=== PATIENT | male | born 1960 | race Caucasian/White ===

== ENCOUNTER 2017-07-23 23:01 | Emergency (ER) | payer MEDICARE, OTHER ==
[2017-07-23] MEDS ORDERED: Sodium Chloride 0.9% 1,000 ML IV ONE (23:46)
[2017-07-23] MEDS ORDERED: Phenytoin 250 mg/5 ml Inj IVP ONE (23:48)
[2017-07-23] MEDS ORDERED: Sodium Chloride 0.9% 1,000 ML ONE (23:59)
--- NOTE | 2017-07-24 00:11 | C.PDOC ---
History Of Present Illness 57 year old male with known history of seizure disorder and alcohol dependency presents to the ED for evaluation of witnessed seizure earlier tonight. Patient is at a rehab facility where he has been taking his Dilantin for seizure disorder, but has had unknown noncompliance. While eating dinner patient was noted to have a seizure with tonic clonic movements and associated loss of consciousness. According to staff this is first seizure in a long time. Prior to arrival to ED patient had another seizure. Patient is somnolent but responsive to questions. He has no acute complaints at this time. Chief Complaint (Nursing): Seizure History Per: Patient, Other (Facility staff ) History/Exam Limitations: no limitations Recent Seizure Activity Began: Just Before Arrival (and earlier tonight ) Number Of Seizures: Multiple Quality Of Seizure: Generalized (involving tonic-clonic movement) Precipitating Factor(s): Missed Dose Of Anti-seizure Medication (noncompliant) Past Medical History Reviewed: Historical Data, Nursing Documentation, Vital Signs Vital Signs: Last Vital Signs Temp 99.0 F 07/24/17 03:05 Pulse 92 H 07/24/17 03:05 Resp 16 07/24/17 03:05 BP 109/77 07/24/17 03:05 Pulse Ox 98 07/24/17 03:05 - Medical History PMH: Seizures Family History: States: Unknown Family Hx - Social History Hx Alcohol Use: No Hx Substance Use: No Review Of Systems Except As Marked, All Systems Reviewed And Found Negative. Constitutional: Negative for: Fever, Chills ENT: Negative for: Ear Pain, Throat Pain Cardiovascular: Negative for: Chest Pain Respiratory: Negative for: Shortness of Breath Gastrointestinal: Negative for: Nausea, Vomiting, Abdominal Pain, Diarrhea Skin: Negative for: Rash Neurological: Positive for: Seizures. Negative for: Headache Physical Exam - Physical Exam Appears: No Acute Distress, Other (Somnolent but responsive to questions) Skin: Normal Color, Warm, Dry Head: Atraumatic, Normacephalic Eye(s): bilateral: Normal Inspection, PERRL, EOMI Oral Mucosa: Moist Tongue: Normal Appearing (no signs of tongue bite) Lips: Normal Appearing Throat: Normal Neck: Normal, Normal ROM, Supple Cardiovascular: Rhythm Regular Respiratory: Normal Breath Sounds Gastrointestinal/Abdominal: Normal Exam, Soft, No Tenderness Extremity: Normal ROM, No Deformity Neurological/Psych: Oriented x3, Normal Speech, Normal Cranial Nerves (cranial nerves II-XII intact ), Normal Motor, Normal Sensation ED Course And Treatment - Laboratory Results Result Diagrams: 07/24/17 00:28 07/24/17 00:28 O2 Sat by Pulse Oximetry: 97 Medical Decision Making Medical Decision Making: Impression : Seizure disorder Doubt alcohol withdrawal since he has been confined to a rehab program. Will initiate IV Dilantin load and check the levels. Dilantin level 3.7 so will order additional 500 mg for a total of 1 g Dilantin Patient was subtherapeutic on Dilantin. Received 1 gram loading dose. He has exhibited no further seizure activity in the department and will be discharged on prescription for Dilantin Disposition - Disposition Referrals: [facility] [Outside] Disposition: HOME/ ROUTINE Disposition Time: 03:37 Condition: FAIR Prescriptions: Phenytoin, Extended [Dilantin Kapseals] 100 mg PO TID #30 cap Instructions: Epilepsy in Adults Forms: [facility] (Vietnamese) Print Language: SETSWANA - Clinical Impression Clinical Impression: Seizure - Scribe Statement The provider has reviewed the documentation as recorded by the Scribe The provider has reviewed the documentation as recorded by the Scribe (James [place]) Provider Attestation: All medical record entries made by the Scribe were at my direction and personally dictated by me. I have reviewed the chart and agree that the record accurately reflects my personal performance of the history, physical exam, medical decision making, and the department course for this patient. I have also personally directed, reviewed, and agree with the discharge instructions and disposition.
[2017-07-24 00:33] LABS: BASO # 0.1 K/uL (0.0-0.2); BASO % 0.8 % (0.0-2.0); EOS # 0.3 K/uL (0.0-0.7); EOS % 3.7 % (0.0-4.0); HEMOGLOBIN 13.6 g/dL (12.0-18.0); LYMPH # 2.6 K/uL (1.0-4.3); LYMPH % 33.1 % (20.0-40.0); MEAN CELL VOLUME 83.7 fL (80.0-94.0); MEAN CORPUSCULAR HEMOGLOBIN 27.9 pg (27.0-31.0); MEAN CORPUSCULAR HGB CONC 33.4 g/dL (33.0-37.0); MEAN PLATELET VOLUME 8.9 fL (7.2-11.7); MONO # 0.7 K/uL (0.0-0.8); MONO % 8.5 % (0.0-10.0); NEUT # 4.3 K/uL (1.8-7.0); NEUT % 53.9 % (50.0-75.0); RBC 4.86 Mil/uL (4.40-5.90); RED CELL DISTRIBUTION WIDTH 13.2 % (11.5-14.5); WHITE BLOOD COUNT 7.9 K/uL (4.8-10.8)
[2017-07-24 00:54] LABS: ALB/GLOB RATIO 1.3 (1.0-2.1); ALBUMIN 4.3 g/dL (3.5-5.0); ALT/SGPT 41 U/L (21-72); AST/SGOT 32 U/L (17-59); BLOOD UREA NITROGEN 16 mg/dL (9-20); GFR AFRICAN-AMERICAN > 60; GFR NON-AFRICAN AMERICAN > 60
[2017-07-24] MEDS ORDERED: Phenytoin 500 MG in Sodium Chloride 0.9% 100 ML IVPB STA (00:58)
[2017-07-24 03:15] VITALS: BP 109/77; PULSE 92; RESP 16; TEMP 99
[2017-07-24 03:37] VITALS: O2SAT 97
[2017-07-24] MEDS ORDERED: Phenytoin 500 MG in Sodium Chloride 0.9% 100 ML IV ONE (23:00)
== END 2017-07-24 03:14 | disposition home or self-care (01) ==
LOC: C.ER 23:01
DX: G40.909 Epilepsy, unspecified, not intractable, without status epilepticus (principal)
CPT/HCPCS: 80053; 80185; 85025; 96365; 96366; 99285; J1165; J7040